=== PATIENT | female | born 1955 | race Caucasian/White ===

== ENCOUNTER → 2019-11-07 13:22 | Outpatient (CLI) | payer MEDICARE, SELFPAY ==
--- NOTE | ~2019-11-07 | XR_ITS ---
EXAMINATION: XR lumbar spine 2-3V EXAM DATE: 11/07/2019 13:46 INDICATION: Low back pain. TECHNIQUE: Lumber spine frontal, lateral, lateral L5-S1 projections for interpretation. Comparison is made to prior examination from 07/28/2016. FINDINGS: There is moderate upper lumbar, severe lower lumbar facet arthropathy. Mild diffuse lumbar disc disease. Vertebral body heights are maintained. The vertebral bodies are aligned in the AP dime nsion. There are arterial calcifications, arteriosclerosis. Sacrum, sacroiliac joints, sacral arcu ate lines are intact. Paraspinal soft tissue is unremarkable. IMPRESSION: Advanced lumbar facet arthropathy. Reviewed, dictated and finalized at location A.
== END ==
PROVIDERS: PCP Internal Medicine; Visit Provider Internal Medicine
DX: M54.9 Dorsalgia, unspecified (principal); M12.88 Other specific arthropathies, not elsewhere classified, other specified site
CPT/HCPCS: 72100

== ENCOUNTER 2020-08-07 14:12 | Outpatient (CLI) | payer MEDICARE, SELFPAY ==
--- NOTE | ~2020-08-07 | MM_ITS ---
EXAMINATION: MM screening rafael BI w katherine HISTORY: Screening TECHNIQUE: Craniocaudal and mediolateral oblique 3-D tomosynthesis images were obtained and synthetic 2-D images were generated. CAD analysis was submitted and interpreted. COMPARISON: No prior mammogram is available for comparison at this institution. BREAST PARENCHYMAL COMPOSITION: The breasts are heterogenously dense, which may obscure small masses. FINDINGS: There is no evidence of suspicious mass, calcification, or architectural distortion to sugg est malignancy in either breast. There has been no suspicious interval change. IMPRESSION: 1. No mammographic evidence of malignancy. 2. Recommend routine screening mammography in one year. BI-RADS Category 1: Negative Reviewed, dictated and finalized at location A. [employer]
--- NOTE | ~2020-08-07 | DEXA_ITS ---
Bone Density Report Name: Lisa Keane Age: 65 Sex: Female Ethnicity: White Date of : 1955 Indication: postmenopausal; prior fracture; seizure disorder; Referring Provider: Doris Jauregui Study: Bone densitometry was performed. Exam Date: August 07, 2020 Accession number: [id number] Bone Density: Region BMD T-score Z-score Classification AP Spine (L1-L4) 0.923 -1.1 0.5 Osteopenia Femoral Neck (Left) 0.600 -2.2 -0.8 Osteopenia Total Hip (Left) 0.655 -2.4 -1.2 Osteopenia Total Hip Bilateral Avg 0.652 -2.4 -1.3 Osteopenia Femoral Neck (Right) 0.570 -2.5 -1.1 Osteoporosis Total Hip (Right) 0.649 -2.4 -1.3 Osteopenia World Health Organization criteria for BMD impression classify patients as: Normal (T-score at or above -1.0), Osteopenia (T-score between -1.0 and -2.5), or Osteoporosis (T-score at or below -2.5). 10-year Fracture Risk: FRAX not reported because: Some T-score for Spine Total or Hip Total or Femoral Neck at or below -2.5 Clinical Information Provided by Patient: Has had a low trauma fracture Smokes Has the following medical conditions: Any Seizure Disorders Patient maximum height was 60 Menopause Age: 52 No regular weight bearing exercise Drinks caffeinated beverages Onset of menses at age 15 Number of children 0 Impression: The patient has established osteoporosis, based on the Right Femoral Neck T-score and the existence of a prior fracture. The patient has risk factors, including: smoking, previous fracture. Discussion: HIGH RISK OF FRACTURE. BONE DENSITY IS UNDESIRABLY LOW AT ONE OR MORE SKELETAL SITES, CONSISTENT WITH POSTMENOPAUSAL OSTEOPOROSIS. This patient's lowest T-score, in a patient who has previously fractured, meets the World Health Organization's (WHO) criteria for severe osteoporosis. In untreated patients, the risk of osteoporotic fracture increases approximately two-fold for each 1.0 SD decrease in T-score. Low bone density is not the only risk factor for fracture; also consider factors such as patient's age, frailty or poor health, risk of falling, risk of injury, previous osteoporotic fracture, family history of osteoporosis, cigarette smoking, low body weight, etc. Not everyone with low bone mineral density has osteoporosis; osteomalacia and other metabolic bone disorders should also be considered. Patients who have osteoporosis should be evaluated for specific diseases and conditions (secondary causes) that may cause or contribute to bone loss. The [place] [employer]ocrinologists (AACE) and National Osteoporosis Foundation (NOF) recommend pharmacologic intervention for all postmenopausal women whose T-score is in this range. The patient should follow a healthful lifestyle (good nutrition with adequate calcium and vitamin D, and appropriate weight-bearing exercise
== END 2020-08-07 14:13 | disposition home or self-care (01) ==
LOC: ANHIMG 14:17
PROVIDERS: PCP Internal Medicine; Visit Provider Nurse Practitioner
DX: Z12.31 Encounter for screening mammogram for malignant neoplasm of breast (principal); Z13.820 Encounter for screening for osteoporosis; M81.0 Age-related osteoporosis without current pathological fracture; M85.852 Other specified disorders of bone density and structure, left thigh; M85.851 Other specified disorders of bone density and structure, right thigh
CPT/HCPCS: 77063; 77067; 77080

== ENCOUNTER 2021-04-25 07:51 | Outpatient (CLI) | payer MEDICARE, SELFPAY ==
--- NOTE | ~2021-04-25 | XR_ITS ---
EXAMINATION: XR UGI w barium swallow EXAM DATE: 04/25/2021 08:55 INDICATION: R10.9 - Unspecified abdominal pain. Nausea in the morning. TECHNIQUE: Standard single and double contrast barium esophagram and upper GI examination was perform ed by radiologist El Patino M.D. Pulsed dose reduction fluoroscopy was used with fluoroscopic time of 0.5 minutes. The DAP for this procedure was 0.4 Gycm2. A total of 108 images obtained for the e xam. There is no prior study for comparison. FINDINGS: The pharynx is symmetric and without evidence of mass lesion or mucosal irregularity. Ther e is no esophageal stricture, diverticulum or mass identified. Gastroesophageal junction is normal i n appearance. Reflux was not demonstrated during this examination. The stomach has a normal appearance without evidence of mass lesion, ulceration or filling defect. T here is normal rugal fold pattern. The duodenum and duodenal sweep are normal in appearance. IMPRESSION: Normal exam. Reviewed, dictated and finalized at location A. IMPRESSION: Normal exam.
--- NOTE | ~2021-04-25 | CT_ITS ---
EXAMINATION: CT lung screening EXAM DATE: 04/25/2021 08:19 INDICATION: Z72.0 -Personal history Tobacco use. TECHNIQUE: Spiral low dose CT of the chest without contrast. Axial, coronal and sagittal images were reviewed. The dose-length product (DLP) for this examination was 63.56 mGy-cm. The exposure was ta ilored according to patient size (auto mA exposure control), and iterative reconstruction (ASIR) was used as additional dose reduction technique. Comparison is made to prior examination from 07/28/2016. FINDINGS: There is interval development of 1.6 cm left lower lobe anterior segmental nodule with spi culations. There is mild to moderate emphysema. Tracheobronchial tree is patent. There is no medias tinal, hilar or axillary lymphadenopathy. There are no pleural or pericardial effusions. There is no pneumothorax. Heart normal in size. There is moderate coronary arterial calcification, arteri al sclerosis. Large region of decreased attenuation within the liver centrally involving the right liver lobe and m edial segment of the left liver lobe, region measuring up to about 8 cm. Differential diagnosis inclu lynne metastatic lesion, primary liver cancer. This is not characteristic location or appearance for fo marisela fatty infiltration. Additionally, there is likely a 2nd right liver lobe lesion measuring 2.2 cm posteriorly. There is thoracic spondylosis without osteoblastic or osteolytic lesions identified. IMPRESSION: 1. Lung-RADS category 4BS, suspicious. CT-guided percutaneous biopsy indicated. 2. At least 2 liver masses, larger up to 8 cm in size suspicious for malignancy/metastatic disease. Contrast enhanced CT or MRI abdomen recommended. I left a message for Dr. Maxwell Swenson DO on 04/25/2021 08:53 CDT. I told Brandy about lung and li sean masses. I provided my direct number, requested call back to discuss findings in this case. Reviewed, dictated and finalized at location A. IMPRESSION: 1. Lung-RADS category 4BS, suspicious. CT-guided percutaneous biopsy indicated . 2. At least 2 liver masses, larger up to 8 cm in size suspicious for malignanc y/metastatic disease. Contrast enhanced CT or MRI abdomen recommended. I left a message for Dr. Maxwell Swenson DO on 04/25/2021 08:53 CDT. I told Kannan pringle about lung and liver masses. I provided my direct number, requested call b ack to discuss findings in this case.
--- NOTE | ~2021-04-25 | US_ITS ---
EXAMINATION: US abdomen complete EXAM DATE: 04/25/2021 08:35 INDICATION: R10.9 - Unspecified abdominal pain . TECHNIQUE: Multiple grayscale and Doppler images of the complete abdomen were obtained (by a technolo gist who performed the scan) and subsequently reviewed. Correlation is made to chest CT same date. FINDINGS: The abdominal aorta is normal in caliber with scattered arterial sclerosis. Visualized portion IVC is patent. The pancreatic head and body are normal in appearance. The pancreatic tail is not visua lized. The liver has normal echogenicity and contour. There is a liver mass centrally measuring over 6 cm. There is a 1.8 cm cyst. There is no evidence of intrahepatic biliary duct dilation. Portal venous f low was seen in the hepatopedal, normal direction and has normal Doppler waveform. Common bile duct measures 2 mm, which is normal. The gallbladder wall is normal in thickness, with ex pected amount of distention. No sonographic evidence of pericholecystic fluid. There is no cholelit hiases. Technologist performing exam reports patient did not demonstrate sonographic Chacon's sign. Please note that this sign is less reliable in patients who have received pain medication. Right kidney: There is normal contour and echogenicity. It measures 8.9 x 4.2 x 4.7 centimeters. T here are no focal renal lesions identified. There is no hydronephrosis. Left kidney: There is normal contour and echogenicity. It measures 9.6 x 6.5 x 4.3 centimeters. Th ere are no focal renal lesions identified. There is no hydronephrosis. The spleen measures 8.6 centimeters and is morphologically normal. IMPRESSION: Large nonspecific liver mass. More likely malignant than benign. I left a message for Dr. Maxwell Swenson DO on 04/25/2021 08:53 CDT. I told Brandy about lung and li sean masses. I provided my direct number, requested call back to discuss findings in this case. Reviewed, dictated and finalized at location A. IMPRESSION: Large nonspecific liver mass. More likely malignant than benign. I left a message for Dr. Maxwell Swenson DO on 04/25/2021 08:53 CDT. I told Kannan pringle about lung and liver masses. I provided my direct number, requested call b ack to discuss findings in this case.
== END 2021-04-25 07:52 | disposition home or self-care (01) ==
PROVIDERS: PCP Internal Medicine; Visit Provider Internal Medicine
DX: R10.9 Unspecified abdominal pain (principal); R11.0 Nausea; Z87.891 Personal history of nicotine dependence; K76.89 Other specified diseases of liver
CPT/HCPCS: 71271; 74240; 76700

== ENCOUNTER 2021-05-01 13:32 | Outpatient (CLI) | payer MEDICARE, MEDICAID, SELFPAY ==
--- NOTE | ~2021-05-01 | CT_ITS ---
EXAMINATION: CT abdomen pelvis wo con DATE: 05/01/2021 14:13 INDICATION: Unspecified abdominal pain TECHNIQUE: Computed tomography (CT) of the abdomen and pelvis was performed without intravenous contr ast. The dose-length product (DLP) was 180.32 mGy-cm. Automated exposure control and iterative recons truction technique were employed. COMPARISON: None FINDINGS: There is moderate emphysema. A 2.5 x 1.3 cm spiculated nodule is present in the left lower lobe. There is an ill-defined mass of the right hepatic lobe measuring approximately 8.9 x 4.4 cm. A 1.7 cm cyst is present in the right hepatic lobe. Multiple hypoattenuating lesions are present in irene er segments V and . The spleen, pancreas, gallbladder, and adrenal glands are normal. The kidneys a re unremarkable. There is calcified atherosclerosis of the aorta and many of the other arteries. Garrison jim diverticulosis is present without evidence of diverticulitis. There is left retroperitoneal/peria ortic lymphadenopathy. There is no free intraperitoneal gas or evidence of bowel obstruction. IMPRESSION: 1. Spiculated left lower lobe nodule concerning for primary bronchogenic carcinoma. 2. Multiple liver masses and retroperitoneal lymphadenopathy, consistent with metastatic disease. Reviewed, dictated and finalized at location A. IMPRESSION: 1. Spiculated left lower lobe nodule concerning for primary bronchogenic carcin chris. 2. Multiple liver masses and retroperitoneal lymphadenopathy, consistent with m etastatic disease.
== END 2021-05-01 13:33 | disposition home or self-care (01) ==
PROVIDERS: PCP Internal Medicine; Visit Provider Internal Medicine
DX: R10.9 Unspecified abdominal pain (principal); R16.0 Hepatomegaly, not elsewhere classified
CPT/HCPCS: 74176

== ENCOUNTER 2022-04-12 11:08 | Emergency (ER) | payer MEDICARE, SELFPAY ==
--- NOTE | 2022-04-12 11:13 | ED.URI ---
HPI - URI/Sore Throat General Chief Complaint: Upper Respiratory Infection Stated Complaint: cough, stomach ache Time Seen by Provider: 04/12/22 11:13 Source: patient Mode of arrival: ambulatory Limitations: no limitations History of Present Illness HPI Narrative: Ms. Keane is a 67-year-old female patient presenting to the clinic today with complaints of cough and stomachache. She reports this has been going on for a few days. She reports fever and chills but does not know how high her fevers been she has a productive cough with brown phlegm. She is a current smoker. History of lung cancer and liver cancer. She is currently on radiation treatments for this. No known exposure to anyone with COVID, flu, or strep MD elicited complaint: cough and other (Nausea, stomachache) Related Data Home Medications Medication Instructions Recorded Confirmed aspirin 81 mg tablet,delayed 81 mg PO DAILY 11/07/19 04/12/22 release (Adult Low Dose Aspirin) dexamethasone 4 mg tablet 4 mg PO DAILY 04/12/22 04/12/22 docusate sodium 100 mg capsule 100 mg PO DAILY 04/12/22 04/12/22 fluticasone propionate 50 50 mcg intranasal DAILY 04/12/22 04/12/22 mcg/actuation nasal spray,suspension folic acid 1 mg tablet 1 mg PO DAILY 04/12/22 04/12/22 hydrocodone 5 mg-acetaminophen 325 1 tablet PO DAILY 04/12/22 04/12/22 mg tablet lisinopril 10 mg tablet 10 mg PO DAILY 04/12/22 04/12/22 loratadine 10 mg tablet 10 mg PO DAILY 04/12/22 04/12/22 mirtazapine 7.5 mg tablet 7.5 mg PO DAILY 04/12/22 04/12/22 ondansetron HCl 8 mg tablet 8 mg PO DAILY 04/12/22 04/12/22 pantoprazole 40 mg tablet,delayed 40 mg PO DAILY 04/12/22 04/12/22 release Allergies Allergy/AdvReac Type Severity Reaction Status Date / Time No Known Allergies Allergy Verified 04/12/22 11:11 Review of Systems Review of Systems: Pertinent positives per HPI. Patient denies any fever, chills, rash, headache, visual changes, dizziness, shortness of breath, chest pain, palpitations, vomiting, diarrhea, constipation, or any urinary issues. [facility] Past Medical History Medical History Screening for breast cancer Screening for osteoporosis Family History Family History Mother Patient's mother is in good health Father Patient's father is in good health Social History Social History Smoking packs per day: 1 Smoking cigarettes per day: 20.0 Years smoked: 40 Smoking pack-years: 40.00 Smoking status: Current every day smoker Second hand tobacco smoke exposure: Yes Alcohol intake: never Substance use: never Comments At the time of my signature, I reviewed and agree with the nursing past medical, surgical, social, and family history. There is no relevant family history pertinent to the patient complaint. Exam Narrative: General: Well-developed, well nourished, in no apparent distress Head: Normocephalic, atraumatic Eyes: Pupils equally round and reactive to light bilaterally, EOM intact, sclera and conjunctive clear, no discharge, lids normal Ears: TMs intact and clear, ear canals clear, no drainage, grossly hearing normal. Nose: Nares patent, clear nasal discharge, no inflammation, no sinus tenderness. Mouth: Oral pharynx without lesions or masses, good dentition, MMM. Neck: Supple, trachea midline, no enlargement of anterior or posterior cervical nodes, no thyroid masses or goiter palpable. Cardio: Regular rate and rhythm, s1 and s2 normal, no murmur appreciated. Resp: Diminished breath sounds, no rhonchi, rales, wheezing or rubs Abdomen: Soft, pliable, nontender to palpation, bowel sounds present all 4 quadrants, no CVAT tenderness, no organomegaly Course Course Emergency Course: Portions of this record may have been created with voice recogniti
[2022-04-12 11:25] VITALS: BP 82/60; PULSE 89; RESP 16; TEMP 36.6; O2SAT 100
== END 2022-04-12 12:45 | disposition home or self-care (01) ==
PROVIDERS: Emergency Provider Nurse Practitioner Family
DX: U07.1 COVID-19 (principal); F17.210 Nicotine dependence, cigarettes, uncomplicated; C34.90 Malignant neoplasm of unspecified part of unspecified bronchus or lung; C78.7 Secondary malignant neoplasm of liver and intrahepatic bile duct; Z79.82 Long term (current) use of aspirin
CPT/HCPCS: 81003; 87426; 99213; C9803; G0463